=== PATIENT | female | born 1935 | race Caucasian/White ===

== ENCOUNTER 2017-11-28 22:15 | Emergency (ER) | payer MEDICARE ==
[~2017-11-28] VITALS: Ht 154.9 cm; Wt 58.0 kg
[~2017-11-28 22:15] MED LIST: ATEN50TA PO; CALC600T55 CHEW; CYAN1TAB24 PO; ESTR42.5V VAGINAL; FOLI400T PO; KRIL500C2 PO; METH2.5T PO; MULT-177; OMEP40CA2 PO; TRAM50TA PO
[2017-11-28 22:48] VITALS: BP 154/70; PULSE 68; RESP 18; TEMP 98.1; O2SAT 96
[2017-11-29 00:25] VITALS: BP 188/83; PULSE 62; RESP 18; O2SAT 97
[2017-11-29] MEDS ORDERED: SODIUM CHLORIDE 0.9% FLUSH 10 ML FLUSH IV FLUSH PRN (00:30)
[2017-11-29] MEDS ORDERED: methylPREDNISolone SOD SUCC 125 MG/2 ML VIAL IV PUSH ONE (00:30)
[2017-11-29] MEDS ORDERED: FAMOTIDINE 20 MG/2 ML VIAL IV PUSH ONE (00:30)
[2017-11-29] MEDS ORDERED: CETIRIZINE HCL 10 MG TAB PO ONE (00:30)
--- NOTE | 2017-11-29 00:31 | PD ---
HPI Chief Complaint: Skin Problem Time Seen by Provider: 00:32 Travel History International Travel<30 days: No Contact w/Intl Traveler<30days: No Traveled to known affect area: No History of Present Illness HPI 82-year-old female presents to the emergency department by private transportation for complaint of erythematous pruritic rash to the abdominal wall. Patient states she has noted the symptoms since 4:30 AM. Patient states the only new medication she is taken within the last 24-48 hours as over-the- counter Azo for possible urinary tract infection. Patient is not taking antibiotic at this time. Patient states she had a stress test canceled today because of the rash and did not receive any medications and preparations for her stress test today. Patient states that she contacted her primary care provider who encouraged her to use prednisone and did take a one-time dose of prednisone 20 mg today as well as a one-time dose of Claritin this morning. Patient states rash has progressed and remains pruritic and now circumferential around the waist area and is extended to the groin and back. Patient denies any shortness of breath lip tongue or throat swelling stridor or hoarseness wheezing chest pain palpitations abdominal pain or cramping diarrhea near syncope or syncope. Patient does have prior history of allergic reaction to erythromycin and penicillin. [facility] Past Medical History Narrative Medical Patient takes aspirin 81 mg daily hypertension rheumatoid arthritis; nursing notes reviewed Hx Anticoagulant Therapy: Yes (ASA 81MG) ?: Not Past Surgical History Hysterectomy: Yes (PARTIAL) Social History Tobacco Use: No Allergies-Medications (Allergen,Severity, Reaction): Coded Allergies: erythromycin base (Verified Allergy, Severe, Tachycardia, 11/29/17) penicillin G (Verified Allergy, Intermediate, Rash, 11/29/17) Reported Meds & Prescriptions Reported Meds & Active Scripts Active Estrace Vaginal (Estradiol) 0.01% Cream 1 Gm VAGINAL HS Atenolol 50 Mg Tab 50 Mg PO DAILY Omeprazole 40 Mg Cap 40 Mg PO DAILY Methotrexate 2.5 Mg Tab 2.5 Mg PO Q7D Reported Folic Acid 0.4 Mg Tab 1,600 Mcg PO DAILY Krill Oil 500 Mg Capsule 1 Cap PO DAILY Tramadol (Tramadol HCl) 50 Mg Tab 50 Mg PO Q12HR PRN Calcium + D3 (Calcium Carbonate-Vitamin D) Unknown Strength Tab Unknown Dose CHEW BID Multiple Vitamins For Women (Multivit with Calcium,Iron,Min) Unknown Strength Tablet Unknown Dose B12 (Cyanocobalamin) 1,000 Mcg Tab 500 Mcg PO DAILY Review of Systems Except as stated in HPI: all other systems reviewed are Neg General / Constitutional: No: Fever, Chills Eyes: No: Visual changes HENT: Positive: Other (nio angioedema), No: Sore Throat, Congestion Cardiovascular: No: Chest Pain or Discomfort, Diaphoresis, Syncope Respiratory: No: Shortness of Breath, Wheezing Gastrointestinal: No: Nausea, Vomiting, Diarrhea, Abdominal Pain Genitourinary: Positive: Dysuria Skin: Positive Rash, Positive Itching, No Hives Neurologic: No: Weakness, Dizziness Psychiatric: No: Anxiety Hematologic/Lymphatic: No: Lymph Node Enlargement Physical Exam Narrative GENERAL: Well-developed well-nourished female no acute distress or respiratory distress; no stridor no hoarseness. SKIN: Warm and dry. Erythematous papular macular rash around the anterior trunk extending into the groin and back interrupted and partially circumferential without vesicles pustules petechia or purpura with urticarial components and evidence of excoriation. HEAD: Normocephalic. EYES: No scleral icterus. No injection or drainage. ENT: Mucous membranes moist airways patent no angioedema NECK: Supple, trachea midline. No JVD or lymphadenopathy. CARDIOVASCULAR: Regular rate and rhythm without murmurs, gallops, or rubs. RESPIRATORY: Breath sounds equal bilaterally. No accessory muscle use. GASTROINTESTINAL: Abdomen soft, non-tender, nondistended. MUSCULOSKELETAL: No cyanosis, or edema. BACK: Nontender without obvious deformity. No CVA tenderness. Data Data Last Documented VS Vital Signs Date Time Temp Pulse Resp B/P (MAP) Pulse Ox O2 Delivery O2 Flow Rate FiO2 11/29/17 01:27 67 16 95 Room Air 11/28/17 22:48 98.1 Orders Orders Ecg Monitoring (11/29/17 00:28) Iv Access Insert/Monitor (11/29/17 00:28) Oximetry (11/29/17:28) Methylprednisolone So Succ Inj (Solumedr (11/29/17 00:30) Famotidine Inj (Pepcid Inj) (11/29/17 00:30) Sodium Chloride 0.9% Flush (Ns Flush) (11/29/17 00:30) Urinalysis - C+S If Indicated (11/29/17 00:28) Cetirizine (Zyrtec) (11/29/17 00:30) Ed Discharge Order (11/29/17 02:29) Labs Laboratory Tests Test 11/29/17 00:53 Urine Color YELLOW Urine Turbidity CLEAR Urine pH 6.0 Urine Specific [place] LESS/EQUAL 1.005 Urine Protein NEG mg/dL Urine Glucose (UA) NEG mg/dL Urine Ketones NEG mg/dL Urine Occult Blood SMALL Urine Nitrite NEG Urine Bilirubin NEG Urine Urobilinogen 0.2 MG/DL Urine Leukocyte Esterase NEG Urine RBC 15-19 /hpf Urine WBC 0-2 /hpf Urine Squamous Epithelial Cells 0-5 /hpf Urine Bacteria NONE /hpf Microscopic Urinalysis Comment CULT NOT INDICATED MDM Medical Decision Making Medical Screen Exam Complete: Yes Emergency Medical Condition: Yes Medical Record Reviewed: Yes Interpretation(s) UA: few rbc's cx not indicated Differential Diagnosis Allergic reaction, contact dermatitis, adverse medication reaction, candidiasis , uti Narrative Course Patient administered Zyrtec 10 mg by mouth, Solu-Medrol 125 mg IV and Pepcid 20 mg IV; urine specimen collected UA: cx not indicated At 01:30 remains without obvious mucous membrane involvement no angioedema erythematous rash has started to slightly dissipate at 30 minutes after administration of medications. At 2:30 AM symptoms are markedly improved and patient is stable for outpatient management Diagnosis Primary Impression: Allergic reaction Qualified Codes: T78.40XA - Allergy, unspecified, initial encounter Referrals: Primary Care Physician call for appointment Patient Instructions: General Instructions Additional Instructions: Avoid overheating Increase fluid hydration Take Zyrtec 10 mg once daily for 7 days Take Zantac 150 twice daily for 7 days May use topical Aveeno anti-itch as needed or topical Benadryl Complete course of Medrol Dosepak Use EpiPen for acute allergic reaction and go to nearest emergency department Follow-up with your primary care provider call office to schedule follow-up appointment Return to the emergency department for any concerns or change in condition Med/Other Pt SpecificInfo: Prescription(s) given Scripts Epinephrine Inj (Epipen 2-Thomas Inj) 0.3 Mg/0.3 Ml Pfpen 0.3 MG IM ONCE Y for ALLERGIC REACTION, #1 PACK 0 Refills Prov: Marlen Silva MD 11/29/17 Methylprednisolone Dosepak (Medrol Dosepak) 4 Mg Dspk 4 MG PO DIRECTED, #1 DSPK 0 Refills Per Pharmacist direction Prov: Marlen Silva MD 11/29/17 Marlen Silva MD Nov 29, 2017 00:31
[2017-11-29 01:03] LABS: BILIRUBIN, URINE NEG (NEG); BLOOD, URINE SMALL (NEG); GLUCOSE,URINE NEG (NEG); KETONE, URINE NEG (NEG); NITRITE,URINE NEG (NEG); URINE COLOR YELLOW (YELLW/STRAW); URINE LEUKOCYTE ESTERASE NEG (NEG)
[2017-11-29 01:06] LABS: WBC, URINE 0-2 /hpf (0-5)
[2017-11-29 01:07] LABS: RBC, URINE 15-19 /hpf (0-3); SQUAMOUS EPITHELIAL CELL URINE 0-5 /hpf (0-5)
[2017-11-29 01:26] VITALS: BP 174/69; PULSE 67; RESP 16; O2SAT 96
[2017-11-29 01:27] VITALS: PULSE 67; RESP 16; O2SAT 95
[2017-11-29] MEDS ORDERED: EPIP0.3I IM (02:32)
[2017-11-29] MEDS ORDERED: MEDR4PAK PO (02:32)
[2017-11-29 02:52] VITALS: BP 153/67
== END 2017-11-29 03:13 | disposition home or self-care (01) ==
LOC: PHED 22:15
DX: T78.40XA Allergy, unspecified, initial encounter (principal); I10 Essential (primary) hypertension; M06.9 Rheumatoid arthritis, unspecified
CPT/HCPCS: 81001; 96374; 96375; 99284; J2930